=== PATIENT | female | born 1970 | race Hispanic/Latino ===

== ENCOUNTER 2019-05-07 10:02 | Emergency (ER) | payer SELFPAY ==
[2019-05-07] MEDS ORDERED: Acetaminophen 500 MG TAB ONE (11:19)
[2019-05-07] MEDS ORDERED: diphenhydrAMINE 50 MG/ML VIAL ONE (11:19)
[2019-05-07] MEDS ORDERED: Ketorolac Tromethamine 30 MG/ML VIAL ONE (11:19)
[2019-05-07] MEDS ORDERED: Metoclopramide HCl 10 MG/2 ML VIAL ONE (11:19)
--- NOTE | 2019-05-07 11:26 | RAD ---
Chest 2 views HISTORY: Dyspnea. FINDINGS: No comparison. Cardiac silhouette and pulmonary vasculature are unremarkable. Mediastinum i s midline. No confluent airspace consolidation, pneumothorax, or pleural fluid evident. IMPRESSION: No active cardiopulmonary abnormalities are demonstrated.
[2019-05-07 11:31] LABS: #Eosinphils 0.1 thou/uL (0.0-0.7); #Lymphocytes 2.1 thou/uL (1.20-3.40); #Monocytes 0.4 thou/uL (0.11-0.59); #Neutrophils 5.3 thou/uL (1.40-6.50); %Basophils 0.4 % (0.0-1.0); %Lymphocytes 26.1 % (21.0-51.0); %Monocytes 4.7 % (0.0-10.0); %Neutrophils 67.8 % (42.0-75.0); Hemoglobin 13.3 g/dL (12.0-16.0); Mean Corpuscular HGB CONC 33.6 g/dL (32.0-36.0); Mean Corpuscular Hemoglobin 29.4 pg (27.0-31.0); Mean Corpuscular Volume 87.5 fL (78.0-98.0); Mean Platelet Volume 7.6 fL (7.4-10.4); Platelet Count 345 thou/uL (130-400); RBC Distribution Width 11.2 % (11.5-14.5); Red Blood Cell (RBC) Count 4.54 mill/uL (4.20-5.40); White Blood Cell (WBC) Count 7.9 thou/uL (4.8-10.8)
[2019-05-07 11:40] LABS: Anion Gap 14 mmol/L (10-20); BUN (Urea Nitrogen) 6 mg/dL (7.0-18.7); Calc. Creatinine Clearance 0 mL/min (70-130); Calcium 9.4 mg/dL (7.8-10.44); Carbon Dioxide 25 mmol/L (22-29); Chloride 104 mmol/L (98-107); Estimated GFR-MDRD 83; Glucose 91 mg/dL (70-105); Potassium 4.1 mmol/L (3.5-5.1); Sodium 139 mmol/L (136-145)
--- NOTE | 2019-05-07 11:52 | CT ---
CT head noncontrast HISTORY: Headache. Dizziness. FINDINGS: No comparison. There is no evidence of acute intracranial hemorrhage or infarct. The ventri cles appear normal in size, shape and position. There is no mass effect or shift of midline structures. IMPRESSION: Normal exam.
[2019-05-07] MEDS ORDERED: HYDROcodone/Acetaminophen 5/325 mg Tablet ONE (12:52)
[2019-05-07] MEDS ORDERED: Ondansetron PF 4 MG/2 ML Vial ONE (12:52)
[2019-05-07] MEDS ORDERED: Dexamethasone 10 MG/ML VIAL ONE (12:52)
== END 2019-05-07 13:33 | disposition home or self-care (01) ==
LOC: ERS 10:02
DX: G43.909 Migraine, unspecified, not intractable, without status migrainosus (principal); E78.5 Hyperlipidemia, unspecified; I10 Essential (primary) hypertension
CPT/HCPCS: 70450; 71046; 80048; 85025; 93005; 96365; 96375; J1100; J1200; J1885; J2405; J2765

== ENCOUNTER 2025-04-15 20:44 | Inpatient (IN) | payer OTHER, SELFPAY ==
[~2025-04-15 20:44] MED LIST: Iopamidol-370 76% 500 ML MDV (1 ML CHARGE) ONE
[2025-04-15 21:31] LABS: #Basophils 0.06 10x3/uL (0.0-0.2); #Eosinophils 0.21 10x3/uL (0.0-0.7); #Monocytes 0.67 10x3/uL (0.11-0.59); #Neutrophils 4.68 10x3/uL (1.40-6.50); %Basophils 0.7 % (0.0-1.0); %Eosinophils 2.4 % (0.0-10.0); %Lymphocytes 36.3 % (21.0-51.0); %Monocytes 7.6 % (0.0-10.0); %Neutrophils 52.7 % (42.0-75.0); Hematocrit 39.8 % (36.0-47.0); Hemoglobin 13.0 g/dL (12.0-16.0); Mean Corpuscular Hemoglobin 27.5 pg (27.0-31.0); Mean Corpuscular Volume 84.1 fL (78.0-98.0); Platelet Count 313 10x3/uL (130-400); Red Blood Cell (RBC) Count 4.73 mill/uL (4.20-5.40); White Blood Cell (WBC) Count 8.87 10x3/uL (4.8-10.8)
[2025-04-15] MEDS ORDERED: Nitroglycerin 2% Ointment 1 INCH/1 GM Packet ONE (21:33)
[2025-04-15] MEDS ORDERED: Aspirin Chewable 81 MG TAB ONE (21:33)
[2025-04-15 21:45] LABS: ALT (SGPT) 32 U/L (Less than 34); AST (SGOT) 31 U/L (11-34); Albumin 4.0 g/dL (3.1-4.5); Alkaline Phosphatase 67 U/L (40-110); Anion Gap 8 mmol/L (10-20); BUN (Urea Nitrogen) 15 mg/dL (9.8-20.1); Bilirubin, Total 0.3 mg/dL (0.3-1.2); Calc. Creatinine Clearance 0 mL/min (70-130); Calcium 9.0 mg/dL (7.8-10.44); Carbon Dioxide 26 mmol/L (22-29); Chloride 106 mmol/L (98-107); Globulin 3.6 g/dL (2.4-3.5); Glucose 129 mg/dL (70-105); Magnesium 2.0 mg/dL (1.6-2.6); Potassium 4.0 mmol/L (3.5-5.1); Sodium 136 mmol/L (136-145)
[2025-04-15] MEDS ORDERED: Guaifenesin DM 100-10/5 ML UDCUP PO PRN (23:24)
[2025-04-15] MEDS ORDERED: Bisacodyl 10 MG SUPP PR PRN (23:24)
[2025-04-15] MEDS ORDERED: Melatonin 3 MG TAB PO PRN (23:24)
[2025-04-15] MEDS ORDERED: Senokot S 8.6-50 MG TAB PO PRN (23:24)
[2025-04-15] MEDS ORDERED: Electrolyte Replacement Protocol 1 EACH FS SCH (23:30)
[2025-04-15] MEDS ORDERED: Magnesium Sulfate In Water 4 GM in Premix 1 BAG IVPB PRN (23:45)
[2025-04-15] MEDS ORDERED: Potassium Chloride 20 MEQ in Premix 1 BAG IVPB PRN (23:45)
[2025-04-15] MEDS ORDERED: PHOS-NAK 1 PKT PACK PO PRN (23:45)
[2025-04-16 00:35] VITALS: BMI 46.0
[2025-04-16 01:22] LABS: Cardiac Risk 3.5 (Less than 4.5); Cholesterol 152.0 mg/dl (< 200 Desired); HDL Cholesterol 44.0 mg/dL (>60 Neg Risk); LDL Cholesterol, Calculated 69.0 mg/dL; Triglycerides 197.0 mg/dL (Less than 150)
[2025-04-16 04:41] LABS: #Basophils 0.05 10x3/uL (0.0-0.2); #Eosinophils 0.26 10x3/uL (0.0-0.7); #Monocytes 0.68 10x3/uL (0.11-0.59); #Neutrophils 4.18 10x3/uL (1.40-6.50); %Basophils 0.6 % (0.0-1.0); %Eosinophils 3.2 % (0.0-10.0); %Lymphocytes 36.4 % (21.0-51.0); %Monocytes 8.3 % (0.0-10.0); %Neutrophils 51.1 % (42.0-75.0); Hematocrit 36.4 % (36.0-47.0); Hemoglobin 11.9 g/dL (12.0-16.0); Mean Corpuscular Hemoglobin 28.2 pg (27.0-31.0); Mean Corpuscular Volume 86.3 fL (78.0-98.0); Platelet Count 302 10x3/uL (130-400); Red Blood Cell (RBC) Count 4.22 mill/uL (4.20-5.40); White Blood Cell (WBC) Count 8.18 10x3/uL (4.8-10.8)
[2025-04-16 05:08] LABS: ALT (SGPT) 26 U/L (Less than 34); AST (SGOT) 26 U/L (11-34); Albumin 3.4 g/dL (3.1-4.5); Alkaline Phosphatase 56 U/L (40-110); Anion Gap 7 mmol/L (10-20); BUN (Urea Nitrogen) 16 mg/dL (9.8-20.1); Bilirubin, Total 0.2 mg/dL (0.3-1.2); Calc. Creatinine Clearance 170 mL/min (70-130); Calcium 8.7 mg/dL (7.8-10.44); Carbon Dioxide 25 mmol/L (22-29); Chloride 109 mmol/L (98-107); Globulin 3.5 g/dL (2.4-3.5); Glucose 106 mg/dL (70-105); Potassium 3.8 mmol/L (3.5-5.1); Sodium 137 mmol/L (136-145)
[2025-04-16] MEDS: Acetaminophen 325 MG TAB PO PRN (10:24)
[2025-04-16] MEDS: Enoxaparin 40 MG (0.4 mL) SYRINGE SC SCH (10:25)
[2025-04-16] MEDS: Lisinopril 10 MG TAB PO SCH (10:25)
[2025-04-16] MEDS: FLU (Fluarix Triv) 25-26 (6MOS UP)/PF 45 MCG/0.5 ML Syringe IM ONE (15:19)
[2025-04-16] MEDS: Rosuvastatin 20 MG TAB PO SCH (21:45)
[2025-04-18] MEDS ORDERED: Iopamidol 370 76% 100 ML VIAL ONE (09:53)
[2025-04-18 11:11] VITALS: BP 113/72; TEMP 97.9
[2025-04-18] MEDS: Metoprolol Succinate XL 25 MG ER.TAB PO SCH (12:23)
== END 2025-04-18 14:23 | disposition home or self-care (01) | DRG 309 ==
LOC: ERS 20:44 → PCU 23:27 → OBSVTOIN 04-16 16:21
PROVIDERS: ADMIT Internal Medicine; ATTEND Family Medicine
DX: I49.3 Ventricular premature depolarization (principal); Z68.42 Body mass index [BMI] 45.0-49.9, adult; I10 Essential (primary) hypertension; I25.2 Old myocardial infarction; E03.9 Hypothyroidism, unspecified; E11.9 Type 2 diabetes mellitus without complications; E78.1 Pure hyperglyceridemia; E66.01 Morbid (severe) obesity due to excess calories; E78.00 Pure hypercholesterolemia, unspecified; Z23 Encounter for immunization; K44.9 Diaphragmatic hernia without obstruction or gangrene; Z79.890 Hormone replacement therapy; Z79.899 Other long term (current) drug therapy; Z98.891 History of uterine scar from previous surgery; R79.1 Abnormal coagulation profile; Z79.01 Long term (current) use of anticoagulants; I65.23 Occlusion and stenosis of bilateral carotid arteries; I08.1 Rheumatic disorders of both mitral and tricuspid valves
CPT/HCPCS: 36415; 70498; 71045; 71275; 78452; 80053; 80061; 83036; 83735; 83880; 84443; 84484; 85025; 85379; 90656; 93005; 93017; 93306; 93880; 96372; A9502; G0378; J1650; J2785; Q9967